=== PATIENT | female | born 1980 | race Caucasian/White ===

== ENCOUNTER 2019-10-12 09:19 | Day surgery (SDC) | payer OTHER, SELFPAY ==
[2019-10-11 08:18] VITALS: BMI 35.5
--- NOTE | 2019-10-12 09:45 | ANES.PREANE2 ---
Pre-Anesthetic Assessment Pre-Anesthetic Assessment: Height/Weight: Height 1.55 m Weight 85.275 kg Proposed Procedure: Operation Date: 10/12/19 10:30 Proposed Procedures p EGD 05026 K21.9(Not Applicable) - Balaji Farias MD Social: Social History: Alcohol (occ) and Tobacco Exam: Pre-Anes Outpt Exam: alert, oriented x 3, clear to auscultation bilaterally and regular rate & rhythm Airway: Submandibular: WNL Cervical ROM: WNL MP: 1 Dentition: Other (nose rings, teeth ok) History/ROS: No significant history except as noted Pulmonary: Pulmonary: None reported CV/HEM: CV/HEM: HTN : : None reported Hepatic: Hepatic: None reported GI: GI: GERD (controlled) Metabolic: Metabolic: None reported Musc/skel: Musc/skel: None reported Neuropsych: Neuropsych: None reported Anesthetic Plan: ASA status: 3 Anesthesia: Anesthesia Evaluation and MAC Risk of > 500 ml blood loss (7ml/kg in children): No PFSH Anesthesia PFSH: Medical History Benign essential HTN GERD (gastroesophageal reflux disease) Surgical History H/O bilateral breast reduction surgery H/O: hysterectomy Family History Other CAD (coronary artery disease) Cancer Hyperlipidemia Hypertension Stroke Denies family history of Anesthesia complication Bleeding disorder Social History Smoking and tobacco status: current every day smoker cigarettes Packs smoked per day: 0.5 Alcohol intake: current Alcohol intake frequency: holidays/special occasions only Lives independently: Yes Household members: spouse Marital status: Marrried Current occupational status: employed History of recent travel: No Data Anesthesia Cardiac Studies: No Data to Display
[2019-10-12 10:12] VITALS: BP 148/97; PULSE 51; RESP 18; TEMP 36.1; O2SAT 99
[2019-10-12] MEDS: sodium chloride 0.9% 1,000 ML 30 ML (10:12)
--- NOTE | 2019-10-12 11:08 | W.PM.OPSUD ---
Surgery/Procedure H&P Update DATE OF PROCEDURE: October 12, 2019 DATE H&P PERFORMED: 09/17/19 H&P UPDATE INFORMATION: H&P completed within last 30 days and No changes to prior documentation PLANNED PROCEDURE: Operation Date: 10/12/19 10:30 Proposed Procedures p EGD 10014 K21.9(Not Applicable) - Balaji Farias MD
[2019-10-12 11:28] VITALS: BP 110/89; PULSE 64; RESP 18; TEMP 36.2; O2SAT 98
--- NOTE | 2019-10-12 11:32 | ANE.PACU2 ---
 Inpatient post-anesthesia follow up: Airway intact: Yes Vital signs: Temperature 97.1 F Pulse Rate 64 Respiratory Rate 18 Blood Pressure 110/89 Pulse Oximetry 98 Oxygen Delivery Me thod Room Air Oxygen Flow Rate Fraction of Inspir ed Oxygen Hydration adequate: Yes Nausea and vomiting: No Pain level: 2 Mental status: Baseline
[2019-10-12 11:37] VITALS: BP 112/90; PULSE 52; RESP 16; O2SAT 97
== END 2019-10-12 11:46 | disposition home or self-care (01) ==
PROVIDERS: Family Provider Family Medicine; PCP Family Medicine; Visit Provider Surgery
PROC: 0DJ08ZZ Inspection of Upper Intestinal Tract, Via Natural or Artificial Opening Endoscopic (ICD-10-PCS; CPT 43235; principal; 2019-10-12 10:30)
DX: K21.9 Gastro-esophageal reflux disease without esophagitis (principal); K20.9 Esophagitis, unspecified; I10 Essential (primary) hypertension; Z82.49 Family history of ischemic heart disease and other diseases of the circulatory system; F17.210 Nicotine dependence, cigarettes, uncomplicated
CPT/HCPCS: 12345; 43239; 88305; J2704; J7030

== ENCOUNTER → 2020-02-12 11:14 | Outpatient (BNVA) | payer SELFPAY | PROVIDERS: Family Provider Family Medicine; PCP Family Medicine; Visit Provider Nurse Practitioner | DX: J06.9 Acute upper respiratory infection, unspecified (principal); F17.219 Nicotine dependence, cigarettes, with unspecified nicotine-induced disorders; R09.81 Nasal congestion | CPT/HCPCS: 87400 ==

== ENCOUNTER → 2020-08-28 11:22 | Outpatient (BNVA) | payer OTHER, SELFPAY | PROVIDERS: Family Provider Family Medicine; PCP Family Medicine; Visit Provider Nurse Practitioner Family | DX: Z20.828 Contact with and (suspected) exposure to other viral communicable diseases (principal) | CPT/HCPCS: 87635 ==

== ENCOUNTER → 2020-10-30 11:29 | Outpatient (BNVA) | payer SELFPAY | PROVIDERS: Family Provider Family Medicine; PCP Family Medicine; Visit Provider Family Medicine | DX: I10 Essential (primary) hypertension (principal); L65.9 Nonscarring hair loss, unspecified; R00.2 Palpitations; F17.219 Nicotine dependence, cigarettes, with unspecified nicotine-induced disorders; Z68.36 Body mass index [BMI] 36.0-36.9, adult | CPT/HCPCS: 80053; 80061; 81015; 82043; 84443; 85025 ==

== ENCOUNTER → 2020-11-13 13:55 | Outpatient (BNVA) | payer BC, SELFPAY | PROVIDERS: Family Provider Family Medicine; PCP Family Medicine; Visit Provider Obstetrics & Gynecology | DX: Z01.419 Encounter for gynecological examination (general) (routine) without abnormal findings (principal); R23.2 Flushing; N39.3 Stress incontinence (female) (male) | CPT/HCPCS: 83001; 84443 ==

== ENCOUNTER → 2020-11-15 13:49 | Outpatient (BNVA) | payer BC, SELFPAY | PROVIDERS: Family Provider Family Medicine; PCP Family Medicine; Visit Provider Obstetrics & Gynecology | DX: N83.291 Other ovarian cyst, right side (principal) | CPT/HCPCS: 76830 ==

== ENCOUNTER → 2020-11-27 14:44 | Outpatient (BNVA) | payer BC, SELFPAY | PROVIDERS: Family Provider Family Medicine; PCP Family Medicine; Visit Provider Obstetrics & Gynecology | DX: R23.2 Flushing (principal) | CPT/HCPCS: 84403 ==

== ENCOUNTER 2020-12-25 14:02 | Outpatient (CLI) | payer BC, SELFPAY ==
--- NOTE | 2020-12-25 14:00 | MM_ITS ---
WS: [id number] BILATERAL DIGITAL SCREENING MAMMOGRAPHY WITH CAD CLINICAL INFORMATION: Z12.39 - Encounter for other screening for malignant neoplasm of breast HISTORY: Screening mammogram. No current complaints. COMPARISON: None. TECHNIQUE: Bilateral CC and MLO views. FINDINGS: History of bilateral breast reduction. Scattered fibroglandular densities bilaterally. No suspicious focal mass, asymmetry, calcifications, or architectural distortion. No evidence of malignancy. Punctate and lucent centered calcifications. MM/[place] [id number] IMPRESSION: BI-RADS: 2-Benign FOLLOW UP: 1 Year Follow-up Recommend return to annual screening mammography.
== END 2020-12-25 14:03 | disposition home or self-care (01) ==
LOC: RADSHAW 14:06
PROVIDERS: PCP Family Medicine; Visit Provider Obstetrics & Gynecology
DX: Z12.31 Encounter for screening mammogram for malignant neoplasm of breast (principal)
CPT/HCPCS: 77067

== ENCOUNTER → 2021-03-16 12:06 | Outpatient (BNVA) | payer BC, SELFPAY | PROVIDERS: PCP Family Medicine; Visit Provider Urology | DX: N30.20 Other chronic cystitis without hematuria (principal); R31.21 Asymptomatic microscopic hematuria; N39.3 Stress incontinence (female) (male) | CPT/HCPCS: 81003; 87086; 88112 ==

== ENCOUNTER → 2021-04-10 11:50 | Outpatient (BNVA) | payer OTHER, BC, SELFPAY | PROVIDERS: PCP Family Medicine; Visit Provider Family Medicine Adult Medicine | DX: T78.40XA Allergy, unspecified, initial encounter (principal); Z91.018 Allergy to other foods; X58.XXXA Exposure to other specified factors, initial encounter; M25.50 Pain in unspecified joint; R23.2 Flushing | CPT/HCPCS: 82785; 86003 ==

== ENCOUNTER → 2021-05-07 11:56 | Outpatient (BNVA) | payer BC, SELFPAY | PROVIDERS: PCP Family Medicine; Visit Provider Family Medicine | DX: I10 Essential (primary) hypertension (principal) | CPT/HCPCS: 80053; 80061 ==

== ENCOUNTER → 2021-05-11 09:46 | Outpatient (BNVA) | payer BC, SELFPAY | PROVIDERS: PCP Family Medicine; Visit Provider Urology | DX: N30.20 Other chronic cystitis without hematuria (principal) | CPT/HCPCS: 81003; 88112 ==

== ENCOUNTER 2021-05-17 08:11 | Outpatient (CLI) | payer BC, SELFPAY ==
--- NOTE | 2021-05-17 08:00 | CT_ITS ---
WS: [id number] CT ABDOMEN PELVIS TECHNIQUE: Noncontrast CT of the abdomen and contrast-enhanced CT of the abdomen and pelvis with yadira nal and sagittal reformatted images. CLINICAL INFORMATION: MICROSCOPIC HEMATURIA COMPARISON: CT 7 30,019 DLP: 2908.[address] scans at [facility] use at least one of these dose optimization techniques: automated e xposure control; mA and/or kV adjustment per patient size (includes targeted exams where dose is matc hed to clinical indication); or iterative reconstruction. FINDINGS: Diffuse fatty infiltration of the liver. Normal portal vein and splenic vein. Lung bases are well aer ated. Small enhancing lobulated lesion in the gallbladder likely gallbladder polyps. This can be foll owed up with ultrasound. This measures approximately 13 mm. Normal spleen. Normal GE junction. Normal pancreas. Adrenal glands are normal. Normal caliber abdominal aorta. Renal parenchymal enhancement. No hydronephrosis. Normal opacification of the ureters. Normal excreti on on delayed images. Normal corticomedullary enhancement. Normal bladder filling on the delayed images. No visualized filling defects. No abdominal or pelvic lymphadenopathy. No inguinal lymphadenopathy. Normal sigmoid colon. Normal royer endix in the right lower quadrant. Right ovarian cyst measuring 2.[address]/CT abdomen pelvis wo/w [id number] IMPRESSION: 1. No hydronephrosis in either kidney. 2. Normal renal parenchymal enhancement. Normal filling of the ureters and roberto dder. No suspicious filling defects. 3. Diffuse fatty infiltration of the liver. 4. Small enhancing lesions in the gallbladder likely gallbladder polyps measur ing 14 mm. This can be followed up with ultrasound. 5. No abdominal or pelvic lymphadenopathy. 6. Right ovarian cyst measuring 2.1 x 1.9 CM. 7. No other significant findings.
[2021-05-17] MEDS: iohexol 300 mg/mL 100 mL Btl IV (08:53)
== END 2021-05-17 08:12 | disposition home or self-care (01) ==
LOC: RAD 08:14
PROVIDERS: PCP Family Medicine; Visit Provider Urology
DX: R31.29 Other microscopic hematuria (principal); N83.201 Unspecified ovarian cyst, right side; K76.0 Fatty (change of) liver, not elsewhere classified
CPT/HCPCS: 74178; 81003

== ENCOUNTER → 2021-06-01 09:47 | Outpatient (BNVA) | payer BC, SELFPAY | PROVIDERS: PCP Family Medicine; Visit Provider Obstetrics & Gynecology | DX: R10.2 Pelvic and perineal pain (principal); Z20.822 Contact with and (suspected) exposure to COVID-19 | CPT/HCPCS: 87635 ==

== ENCOUNTER 2021-06-06 07:51 | Day surgery (SDC) | payer BC, SELFPAY ==
[2021-06-05 10:24] VITALS: BMI 30.2
[2021-06-06 08:19] VITALS: BP 130/88; PULSE 52; RESP 16; TEMP 36.3; O2SAT 99
[2021-06-06 09:08] LABS: Basophils % 0.6 %; Eosinophils # 0.1 10^3/uL (0.0-0.8); Eosinophils % 1.2 %; Hematocrit 40.2 % (37.0-47.0); Hemoglobin 13.3 g/dL (11.5-15.3); Lymphocytes # 1.1 10^3/uL (0.8-4.8); Lymphocytes % 21.5 %; Mean Corpuscular HGB Conc 33.1 g/dL (30.0-36.0); Mean Corpuscular Hemoglobin 31.3 pg (28.0-34.0); Mean Corpuscular Volume 94.6 fl (81-99); Monocytes # 0.3 10^3/uL (0.2-0.9); Monocytes % 5.9 %; Neutrophils # 3.58 10^3/uL (1.8-7.7); Neutrophils % 70.6 %; Nucleated Red Blood Cells % 0 %; Platelet Count 226 10^3/cmm (130-400); Red Blood Count 4.25 10^6/uL (4.1-5.3); Red Cell Distribution Width 12.8 % (12.1-15.1); White Blood Count 5.1 10^3/uL (4.0-10.0)
--- NOTE | 2021-06-06 09:09 | ECG_ITS ---
[facility] Test Date: 2021-06-06 Pat Name: Hina Steele Department: Room: Gender: Female Geophysical Support Specialist: : 1980 Requested By: Jeana Lawrence Order Number: [id number] Brook MD: Macie Sal M.D. Measurements Intervals [place] Rate: 45 P: 37 [place]: 164 QRS: 18 QRSD: 83 T: 9 QT: 461 QTc: 399 Interpretive Statements SINUS BRADYCARDIA POSSIBLE RIGHT VENTRICULAR CONDUCTION DELAY [RSR (QR) IN V1/V2] Compared to ECG 10/31/2018 15:49:44 Incomplete right bundle-branch block no longer present T-wave abnormality no longer present Electronically Signed On 06-06-2021 20:06:42 CDT by Macie Sal M.D. [id number]
--- NOTE | 2021-06-06 09:09 | ANES.PREANE2 ---
Pre-Anesthetic Assessment Pre-Anesthetic Assessment: Height/Weight: Height 1.55 m Weight 70.307 kg Temp Pulse Resp BP Pulse Ox 97.3 F L 52 L 16 130/88 99 06/06/21 08:19 06/06/21 08:19 06/06/21 08:19 06/06/21 08:19 06/06/21 08:19 Preop Diagnosis: GERD Proposed Procedure: Operation Date: 06/06/21 09:15 Proposed Procedures p Laparoscopy diagnostic 98454 N93.9(Not Applicable) - Nagi Juares MD Familial anesthetic complications: Ponv Was Clonidine taken within 24 hours: N/A Last intake: > 8 hrs Social: Social History: No alcohol and No tobacco Exam: Pre-Anes Outpt Exam: alert, oriented x 3, clear to auscultation bilaterally and regular rate & rhythm Airway: Cervical ROM: WNL MP: 3 Dentition: Chipped (front) CV/HEM: CV/HEM: Arrythmia (bradycardia) and HTN Comments: took off amlodipine d/t passing out Anesthetic Plan: ASA status: 3 Risk of > 500 ml blood loss (7ml/kg in children): No Other Pertinent Information: alpha gal allergy PFSH Anesthesia PFSH: Medical History Allergic reaction Benign essential HTN Bipolar disorder Chronic cystitis GERD (gastroesophageal reflux disease) History of 2019 novel coronavirus disease (COVID-19) Multiple food allergies Urinary hesitancy Well woman exam with routine gynecological exam Surgical History H/O bilateral breast reduction surgery H/O LEEP H/O: hysterectomy Status post hysteroscopic polypectomy 10/21/2018- performed by Dr. Juares at [facility] [place] Family History Sister Thyroid condition Grandmother Heart disease maternal Hyperlipidemia maternal Hypertension maternal Stroke maternal Mother Hyperlipidemia Social History Smoking and tobacco status: former smoker Quit status (tobacco): has quit using tobacco Year quit tobacco: 01/2021 Alcohol intake: current Alcohol intake frequency: holidays/special occasions only Alcohol type: hard liquor Marital status: Marrried Current occupational status: employed History of recent travel: No Data Anesthesia CBC & Chem 7: 06/06/21 08:50 06/06/21 08:50 Other Labs: Laboratory Results - last 48 hr 06/06/21 08:50 WBC 5.1 RBC 4.25 Hgb 13.3 Hct 40.2 MCV 94.6 MCH 31.3 MCHC 33.1 RDW 12.8 Plt Count 226 MPV 10.0 Neut % (Auto) 70.6 Lymph % (Auto) 21.5 [place] % (Auto) 5.9 Eos % (Auto) 1.2 Baso % (Auto) 0.6 Neut # (Auto) 3.58 Lymph # (Auto) 1.1 [place] # (Auto) 0.3 Eos # (Auto) 0.1 Baso # (Auto) 0.0 Nucleated RBC % (auto) 0 Nucleated RBCs # 0.0 Cardiac Studies: No Data to Display
[2021-06-06 09:13] LABS: Add Urine Microscopic? YES; Bilirubin Urine Neg (Negative); Blood Urine Trace (Negative); Glucose Urine UA Norm (Normal); Ketones Urine Negative (Negative); Leukocyte Esterase Urine 2+ (Negative); Nitrate Urine Negative (Negative); Protein Urine Neg (Negative); Urine Appearance Clear (CLEAR); Urine Color Yellow (Yellow); Urobilinogen Urine Norm (Negative); pH Urine 6.5 (5-7)
[2021-06-06 09:21] LABS: Add Urine Culture? No; Bacteria Urine 1+ /hpf; RBC Urine 0-4 /hpf (0-2); Squamous Epithelial Cell Urine 25-40 /hpf (0-5)
--- NOTE | 2021-06-06 09:22 | W.PM.OPSUD ---
Surgery/Procedure H&P Update DATE OF PROCEDURE: June 06, 2021 DATE H&P PERFORMED: 09/17/19 H&P UPDATE INFORMATION: I have reviewed H&P completed within last 30 days, I have examined patient prior to procedure and Changes to prior documentation as noted here (5 rema on posterior right parietal area) PREOP DIAGNOSIS: GERD PLANNED PROCEDURE: Operation Date: 06/06/21 09:15 Proposed Procedures p Laparoscopy diagnostic 36605 N93.9(Not Applicable) - Nagi Juares MD
[2021-06-06] MEDS: scopolamine 1.5 Patch 1 PATCH TRANSDERMA (09:28)
[2021-06-06] MEDS: sodium chloride 0.9% 1,000 ML 30 ML IV (09:29)
[2021-06-06 09:32] LABS: Alanine Aminotransferase 19 U/L (0-33); Alkaline Phosphatase 83 IU/L (35-105); Anion Gap 13.5 (5-19); Aspartate Amino Transferase 18 U/L (0-32); Blood Urea Nitrogen 18 mg/dL (6-20); Calcium 8.9 mg/dL (8.5-10.5); Carbon Dioxide 26 mmol/L (22-29); Chloride 107 mmol/L (98-107); Creatinine Clr Calc Pharmacy 110.6471; Globulin 2.9 g/dL (1.3-4.6); Glomerular Filtration Rate 110.2 mL/min (90-130); Glucose 96 mg/dL (65-115); Osmolality Calculated 296 mOsm/kg (285-295); Potassium 4.5 mmol/L (3.5-5.1); Sodium 142 mmol/L (136-145); Total Bilirubin 0.3 mg/dL (0.15-1.2); Total Protein 6.9 g/dL (6.6-8.7)
[2021-06-06 12:22] VITALS: BP 162/98; PULSE 50; RESP 16; TEMP 36.8; O2SAT 100
[2021-06-06] MEDS: midazolam 1 mg/mL INJ 2 mL 2 MG IVP (12:24)
--- NOTE | 2021-06-06 14:39 | PC.NURSE ---
DOCTOR WHELAN TALKED TO PATIENT TO EXPLAIN DELAY AND POSSIBILITY OF RESCHEDULE. PATIENT LEFT AFTER GIVEN VERBAL FOLLOW UP INSTRUCTIONS BY DOCTOR WHELAN.
== END 2021-06-06 14:17 | disposition home or self-care (01) ==
LOC: OR 07:52
PROVIDERS: PCP Family Medicine; Visit Provider Obstetrics & Gynecology
PROC: (CPT 49320; principal; 2021-06-06 09:15)
DX: N93.9 Abnormal uterine and vaginal bleeding, unspecified (principal); Z53.9 Procedure and treatment not carried out, unspecified reason; I10 Essential (primary) hypertension; Z86.16 Personal history of COVID-19; Z87.891 Personal history of nicotine dependence
CPT/HCPCS: 36415; 80053; 81001; 85025; 86850; 86900; 93005; 96374; J2250; J7030

== ENCOUNTER → 2021-07-06 08:54 | Outpatient (BNVA) | payer BC, SELFPAY | PROVIDERS: PCP Family Medicine; Visit Provider Obstetrics & Gynecology | DX: Z20.822 Contact with and (suspected) exposure to COVID-19 (principal); N93.9 Abnormal uterine and vaginal bleeding, unspecified | CPT/HCPCS: 87635 ==

== ENCOUNTER 2021-07-11 08:29 | Day surgery (SDC) | payer BC, SELFPAY ==
[2021-07-09 09:02] VITALS: BMI 32.0
--- NOTE | 2021-07-09 14:31 | ANES.PREANE2 ---
Pre-Anesthetic Assessment Pre-Anesthetic Assessment: Height/Weight: Height 1.52 m Weight 74.389 kg Preop Diagnosis: GERD Proposed Procedure: Operation Date: 07/11/21 11:45 Proposed Procedures p Laparoscopy Diagnostic 56434 N93.9(Not Applicable) - Nagi Juares MD Was Beta Corinna taken within 24 hours: N/A Was Clonidine taken within 24 hours: N/A Social: Social History: Tobacco and No alcohol Exam: Pre-Anes Outpt Exam: alert, oriented x 3, clear to auscultation bilaterally and regular rate & rhythm Airway: Submandibular: WNL Cervical ROM: WNL MP: 2 Dentition: Chipped Additional comments: Jewelry on teeth CV/HEM: CV/HEM: HTN GI: GI: GERD Neuropsych: Neuropsych: Anxiety and Depression Anesthetic Plan: ASA status: 3 Anesthesia: General Other: H/O alpha gal Risk of > 500 ml blood loss (7ml/kg in children): No PFSH Anesthesia PFSH: Medical History Allergic reaction Benign essential HTN Bipolar disorder Chronic cystitis GERD (gastroesophageal reflux disease) History of 2019 novel coronavirus disease (COVID-19) Multiple food allergies Urinary hesitancy Well woman exam with routine gynecological exam Surgical History H/O bilateral breast reduction surgery H/O LEEP H/O: hysterectomy Status post hysteroscopic polypectomy [place]21[place]2018- [place] [facility] [place] History Sister Thyroid condition Grandmother Heart disease maternal Hyperlipidemia maternal Hypertension maternal Stroke maternal Mother Hyperlipidemia Social History (Updated 07/09/21 @ 09:58 by Farhana Kenney RN) Smoking and tobacco status: former smoker Alcohol intake: current Alcohol intake frequency: holidays/special occasions only Alcohol type: hard liquor Substance/Drug Use: current Substance/Drug use frequency: daily Substance/Drug use type: Marijuana Other substance/drug use details: has a marijuana card Data Anesthesia Cardiac Studies: No Data to Display
[2021-07-11 09:30] LABS: Charge for UA Resulting for Rev
[2021-07-11 09:35] VITALS: BP 140/95; PULSE 65; RESP 16; TEMP 36.3; O2SAT 99
[2021-07-11 10:14] LABS: Basophils % 0.6 %; Eosinophils # 0.1 10^3/uL (0.0-0.8); Eosinophils % 1.1 %; Hematocrit 44.7 % (37.0-47.0); Hemoglobin 14.6 g/dL (11.5-15.3); Lymphocytes # 1.5 10^3/uL (0.8-4.8); Lymphocytes % 27.7 %; Mean Corpuscular HGB Conc 32.7 g/dL (30.0-36.0); Mean Corpuscular Hemoglobin 30.8 pg (28.0-34.0); Mean Corpuscular Volume 94.3 fl (81-99); Mean Platelet Volume 9.5 fL (7.4-10.4); Monocytes # 0.3 10^3/uL (0.2-0.9); Monocytes % 6.1 %; Neutrophils # 3.35 10^3/uL (1.8-7.7); Neutrophils % 64.1 %; Nucleated Red Blood Cells % 0 %; Platelet Count 252 10^3/cmm (130-400); Red Blood Count 4.74 10^6/uL (4.1-5.3); Red Cell Distribution Width 12.2 % (12.1-15.1); White Blood Count 5.2 10^3/uL (4.0-10.0)
[2021-07-11] MEDS: scopolamine 1.5 Patch 1 PATCH TRANSDERMA (10:16)
[2021-07-11] MEDS: sodium chloride 0.9% 500 ML IV (10:17)
[2021-07-11 10:32] LABS: Anion Gap 15.2 (5-19); Blood Urea Nitrogen 13 mg/dL (6-20); Calcium 8.5 mg/dL (8.5-10.5); Carbon Dioxide 24 mmol/L (22-29); Chloride 104 mmol/L (98-107); Glomerular Filtration Rate 110.2 mL/min (90-130); Glucose 90 mg/dL (65-115); Osmolality Calculated 288 mOsm/kg (285-295); Potassium 4.2 mmol/L (3.5-5.1); Sodium 139 mmol/L (136-145)
--- NOTE | 2021-07-11 10:34 | W.PM.OPSUD ---
Surgery/Procedure H&P Update DATE OF PROCEDURE: July 11, 2021 DATE H&P PERFORMED: 07/09/21 H&P UPDATE INFORMATION: I have reviewed H&P completed within last 30 days, I have examined patient prior to procedure and No changes to prior documentation PREOP DIAGNOSIS: Pelvic pain PLANNED PROCEDURE: Operation Date: 07/11/21 10:20 Proposed Procedures p Laparoscopy Diagnostic 65206 N93.9(Not Applicable) - Nagi Juares MD
[2021-07-11] MEDS: sodium chloride 0.9% 1,000 ML 30 ML IV (10:50)
[2021-07-11] MEDS: diphenhydrAMINE 50 mg/mL SDV 1mL 25 MG IVP (10:51)
--- NOTE | 2021-07-11 11:02 | P.ANESUD_ITS ---
Pre-Anesthetic Update Pre-Anesthetic Assessment: Date of Surgery/Procedure: 07/11/21 Preop Ban gnosis: Pelvic pain Proposed Procedure: Operation Date: 07/11/21 10:20 Proposed Procedures p Laparoscopy Diagnostic 26073 N93.9(Not Applicable) - Nagi Juares MD Any changes to Pre-Anesthetic Assessment?: No Last Intake: Intake Last Liquid Date 07/11/21 Last Liquid Time 07:00 Last Solid Date 07/10/21 Last Solid Time 19:00 Labs Last 48hrs: Laboratory Results - last 48 hr 07/11/21 07/11/21 09:50 09:50 WBC 5.2 RBC 4.74 Hgb 14.6 Hct 44.7 MCV 94.3 MCH 30.8 MCHC 32.7 RDW 12.2 Plt Count 252 MPV 9.5 Neut % (Auto) 64.1 Lymph % (Auto) 27.7 [place] % (Auto) 6.1 Eos % (Auto) 1.1 Baso % (Auto) 0.6 Neut # (Auto) 3.35 Lymph # (Auto) 1.5 [place] # (Auto) 0.3 Eos # (Auto) 0.1 Baso # (Auto) 0.0 Nucleated RBC % (a uto) 0 Nucleated RBCs # 0.0 Sodium 139 Potassium 4.2 Chloride 104 Carbon Dioxide 24 Anion Gap 15.2 BUN 13 Creatinine 0.6 GFR Calculation 110.2 Glucose 90 Calculated Osmolal ity 288 Calcium 8.5 Vitals: Temperature 97.3 F L 07/11/21 09:35 Temperature Source Temporal Artery S can 07/11/21 09:35 Pulse Rate 65 07/11/21 09:35 Pulse Rhythm 07/11/21 09:39 Pulse Strength 3+ Normal 07/11/21 09:39 Respiratory Rate 16 07/11/21 09:35 Blood Pressure 140/95 07/11/21 09:35 Blood Pressure Mimi n 110 07/11/21 09:35 Pulse Oximetry 99 07/11/21 09:35 Oxygen Delivery Me thod 07/11/21 09:39 Exam: Pre-Anes Outpt Exam: alert, oriented x 3, clear to auscultation bilaterally and regular rate & rhythm Cardiac Studies: 2 No Data to Display
[2021-07-11 11:08] LABS: Blood Urine 2+ (Negative); Glucose Urine UA Norm (Normal); Ketones Urine Negative (Negative); Protein Urine Neg (Negative); Urine Appearance Hazy (CLEAR); Urine Color Straw (Yellow); pH Urine 7 (5-7)
[2021-07-11 11:09] LABS: Add Urine Microscopic? YES; Bilirubin Urine Neg (Negative); Leukocyte Esterase Urine 2+ (Negative); Nitrate Urine Negative (Negative); Urobilinogen Urine Norm (Negative)
[2021-07-11 11:10] LABS: Bacteria Urine 2+ /hpf; Mucus Urine 1+ /hpf
[2021-07-11 11:12] LABS: Add Urine Culture? Yes
--- NOTE | 2021-07-11 11:45 | P.OP_ITS ---
Operative Report Date of procedure: July 11, 2021 Pre-op Diagnosis: Pelvic pain Post-op diagnosis: same Post-op Findings: Pelvic adhesions Procedure Done: Diagnostic laparoscopy. Lysis of adhesions. Pathology: none sent Surgeon: Nagi Juares MD Anesthesia: General Estimated blood loss (mL): 3 IV fluids (mL): 700 Urine output (mL): 200 Complications: None Condition: stable Disposition: PACU Procedure: After informed consent, the patient was taken to the operating room w here general anesthesia was administered. The patient was examined under anesthesia and found to have a normal uterus with normal adnexa. She was placed in the dorsal lithotomy position and prepped and draped in sterile fashion. Pre- Procedure Time-Out verifying the correct patient identity, correct procedure verified with consent, correct site and side, correct patient position, availability of correct implants and any special equipment or requirements was performed and acknowledge by the OR team. A longo catheter was placed to maintain the bladder emptied. A sponge stick was place in the vagina since the patietn is S/P hysterectomy. An intraumbilical incision was made with a scalpel. While tenting up on the abdomen, a Verres needle with sleeve was admitted into the intra-abdominal cavit y. A saline drop test was performed and noted to be within normal limits. Pneumoperitoneum was attained with 4 liters of carbon dioxide. The Verres needle was removed. A 5 mm trocar and sleeve were admitted into the abdomen and laparoscopic confirmation of location was achieved, A second incision was made 3 cm above the symphysis pubis, and a 5 mm trocar and sleeve were admitted into the abdomen under direct, laparoscopic visualization without complication. A survey revealed normal abdominal anatomy but pelvic survey shows adhesions. Ovaries appeared normal. A 5 mm blunt probe was advanced through the second trocar sleeve, and light manipulation of ovaries and to assess the posterior aspects was performed. Omental adhesion to lower anterior abdominal wall were lysed with the Voyant device without complications and good hemostasis. Carbon dioxide was allowed to escape from the abdomen. The instruments were removed, and skin cover with a bandage. The instruments were removed from the vagina, and excellent hemostasis was noted. The patient tolerated the procedure well, and sponge, lap and needle count were correct times two. The patient taken to the recovery room in good condition.
[2021-07-11 12:02] VITALS: BP 132/82; PULSE 58; RESP 14; TEMP 36.3; O2SAT 100
[2021-07-11 12:10] VITALS: BP 117/66; PULSE 63; RESP 18; O2SAT 98
[2021-07-11 12:15] VITALS: BP 144/74; PULSE 58; RESP 10; TEMP 36.7; O2SAT 100
[2021-07-11 12:25] VITALS: BP 137/69; PULSE 58; RESP 18; TEMP 36.6; O2SAT 100
[2021-07-11 14:30] VITALS: BP 141/87; PULSE 69; RESP 16; TEMP 36.8; O2SAT 97
--- NOTE | 2021-07-11 14:52 | ANE.PACU2 ---
Inpatient post-anesthesia follow up: Airway intact: Yes Vital signs: Temperature 97.9 F Pulse Rate 58 Respiratory Rate 18 Blood Pressure 137/69 Pulse Oximetry 100 Oxygen Delivery Me thod Room Air Oxygen Flow Rate Fraction of Inspir ed Oxygen Hydration adequate: Yes Nausea and vomiting: No Pain level: 2 Mental status: Baseline
[2021-07-11] MEDS: HYDROcodone-acetaminophen 5-325 mg Tablet 1 TAB PO (15:15)
== END 2021-07-11 15:22 | disposition home or self-care (01) ==
PROVIDERS: PCP Family Medicine; Visit Provider Obstetrics & Gynecology
PROC: (CPT 49320; principal; 2021-07-11 10:15)
DX: R10.2 Pelvic and perineal pain (principal); I10 Essential (primary) hypertension; Z87.891 Personal history of nicotine dependence; Z90.710 Acquired absence of both cervix and uterus
CPT/HCPCS: 49320; 80048; 81001; 81003; 85025; 86850; 86900; 87086; 96374; J0690; J1100; J1200; J1885; J2250; J2310; J2405; J2704; J2710; J3010; J3490; J7030; J7040

== ENCOUNTER → 2021-11-08 14:20 | Outpatient (BNVA) | payer BC, SELFPAY | PROVIDERS: PCP Family Medicine; Visit Provider Family Medicine | DX: I10 Essential (primary) hypertension (principal) | CPT/HCPCS: 80053; 80061; 85025 ==

== ENCOUNTER → 2022-05-14 12:02 | Outpatient (BNVA) | payer OTHER, SELFPAY | PROVIDERS: PCP Family Medicine; Visit Provider Family Medicine | DX: E78.5 Hyperlipidemia, unspecified (principal) | CPT/HCPCS: 80053; 80061 ==

== ENCOUNTER → 2022-11-07 13:40 | Outpatient (BNVA) | payer OTHER, SELFPAY | PROVIDERS: PCP Family Medicine; Visit Provider Family Medicine | DX: Z01.89 Encounter for other specified special examinations (principal) | CPT/HCPCS: 85025 ==

== ENCOUNTER → 2022-11-08 15:08 | Outpatient (BNVA) | payer OTHER, SELFPAY | PROVIDERS: PCP Family Medicine; Visit Provider Family Medicine | DX: I10 Essential (primary) hypertension (principal) | CPT/HCPCS: 80053; 83036; 85025 ==

== ENCOUNTER 2022-12-11 10:33 | Outpatient (CLI) | payer OTHER, SELFPAY ==
--- NOTE | 2022-12-11 10:47 | MM_ITS ---
WS: [id number] BILATERAL SCREENING DIGITAL TOMOSYNTHESIS MAMMOGRAM WITH CAD HISTORY: screening mammogram, history of prior mammoplasty. COMPARISON: 12/25/2020 Bilateral CC and MLO views with tomosynthesis and synthetic mammography submitted. Computer aided det ection analyzed. Breast composition: There are scattered areas of fibroglandular density. No suspicious masses, microc alcifications or architectural distortion. Focal asymmetry and distortion in the upper-outer quadrant of the LEFT breast. This asymmetry was present on the prior study also. Favor this asymmetry is rela vira to the postsurgical changes of a mammoplasty. No interval change. MM/[place] [id number] IMPRESSION: BI-RADS: 2-Benign FOLLOW UP: 1 Year Follow-up
== END 2022-12-11 10:34 | disposition home or self-care (01) ==
LOC: RAD 10:36
PROVIDERS: PCP Family Medicine; Visit Provider Family Medicine
DX: Z12.31 Encounter for screening mammogram for malignant neoplasm of breast (principal)
CPT/HCPCS: 77063; 77067; 80053; 83036; 85025

== ENCOUNTER → 2023-11-21 13:55 | Outpatient (BNVA) | payer OTHER, SELFPAY | PROVIDERS: PCP Family Medicine; Visit Provider Emergency Medicine | DX: S89.91XA Unspecified injury of right lower leg, initial encounter (principal); S99.911A Unspecified injury of right ankle, initial encounter; X58.XXXA Exposure to other specified factors, initial encounter | CPT/HCPCS: 73562; 73610 ==

== ENCOUNTER → 2024-04-06 13:31 | Outpatient (BNVA) | payer OTHER, SELFPAY | DX: E78.00 Pure hypercholesterolemia, unspecified (principal); E66.9 Obesity, unspecified | CPT/HCPCS: 80053; 80061; 84439; 84443 ==

== ENCOUNTER 2024-04-16 10:58 | Outpatient (CLI) | payer BC, SELFPAY ==
--- NOTE | 2024-04-16 11:30 | MM_ITS ---
WS: [id number] SCREENING DIGITAL BREAST TOMOSYNTHESIS MAMMOGRAM WITH CAD HISTORY: screening COMPARISON: 12/25/2020, 12/11/2022 Bilateral CC and MLO with tomosynthesis and synthetic mammography submitted. Computer aided detection analyzed. Breast composition: The breasts are heterogeneously dense, which may obscure small masses. New asymme try RIGHT CC lateral breast posteriorly. This will probably improve with better compression. Addition al mild distortion in the upper outer quadrant of the LEFT breast needs to be further evaluated. No s oft tissue mass but there is an area of distortion near 11:00. MM/[place] [id number] IMPRESSION: BI-RADS: 0-Incomplete: Need additional imaging evaluation FOLLOW UP: Need Additional Imaging RIGHT breast: Spot compression views (CC, exaggerated lateral RIGHT cc). True M L. Ultrasound to follow if abnormality persists. LEFT breast: Spot compression views (CC and MLO). True ML. Ultrasound to follow if abnormality persists.
== END 2024-04-16 10:59 | disposition home or self-care (01) ==
LOC: RAD 10:58
DX: Z12.31 Encounter for screening mammogram for malignant neoplasm of breast (principal); R92.333 Mammographic heterogeneous density, bilateral breasts; N64.89 Other specified disorders of breast
CPT/HCPCS: 77063; 77067; 80053; 80061; 84439; 84443

== ENCOUNTER 2024-05-11 14:25 | Outpatient (CLI) | payer BC, SELFPAY ==
--- NOTE | 2024-05-11 14:30 | MM_ITS ---
WS: [id number] BILATERAL ADDITIONAL VIEWS DIGITAL TOMOSYNTHESIS MAMMOGRAPHY WITH CAD. LEFT breast ultrasound, limited HISTORY: Bilateral breast abnormalities. COMPARISON: 04/16/2024, 12/11/2022, 12/25/2020 Technique: LEFT CC and MLO spot compression and true ML. RIGHT ML, exaggerated CC and LEFT spot compr ession CC. Tomosynthesis performed. Breast composition: The breasts are heterogeneously dense, which may obscure small masses. The asymmetry resolves with additional imaging in the lateral aspect of the RIGHT breast. With additi onal spot compression views and exaggerated cc there is no persistent abnormality. LEFT breast: Slight architectural distortion persists but becomes less apparent in the upper outer qu adrant of the LEFT breast at a middle depth. This is probably near 3-4 o'clock. LEFT breast ultrasound, limited. The slight architectural distortion in the upper outer quadrant of the LEFT breast demonstrates no ab normality by ultrasound. There is no distortion or mass identified. MM/MM diag BI tomosynthesis [id number] IMPRESSION: BI-RADS: 3 - Probably Benign FOLLOW UP: 6 Month Follow-up The area of architectural distortion in the upper outer quadrant of the LEFT br east persists with additional imaging but there is no corresponding abnormality noted by ultrasound. I suspect this may be an area of scarring and postoperati ve changes from the mammoplasty. The confirmed continued stability diagnostic L EFT mammogram in 6 months and possible ultrasound is recommended.
== END 2024-05-11 14:26 | disposition home or self-care (01) ==
LOC: RAD 14:25
DX: R92.8 Other abnormal and inconclusive findings on diagnostic imaging of breast (principal); R92.333 Mammographic heterogeneous density, bilateral breasts
CPT/HCPCS: 76642; 77062; G0279

== ENCOUNTER 2025-03-29 09:24 | Outpatient (CLI) | payer OTHER, BC, SELFPAY ==
--- NOTE | 2025-03-29 09:30 | MM_ITS ---
WS: [id number] DIAGNOSTIC LEFT DIGITAL BREAST TOMOSYNTHESIS MAMMOGRAPHY WITH CAD LEFT breast ultrasound, limited HISTORY: abnormal mammogram, recommended 6 month follow-up COMPARISON: 05/11/2024, 04/16/2024 and 12/11/2022, ultrasound 05/11/2024 TECHNIQUE: Bilateral craniocaudad, mediolateral oblique, and mediolateral views are submitted with tomosynthesis and SM. Spot compression views LEFT CC and MLO. Computer aided detection utilized. Breast composition: The breasts are heterogeneously dense, which may obscure small masses. Architectural distortion persists in the upper outer quadrant. No mass identified. There are adjacent benign calcifications. LEFT breast ultrasound, limited. Ultrasound is directed to the upper outer quadrant. There is dense fibroglandular tissue but there is no shadowing or mass identified. No skin thickening. MM/MM diag tomosynthesis [id number] IMPRESSION: BI-RADS: 2 - Benign FOLLOW UP: 1 Year Follow-up 1. Recommend return to annual screening mammography. 2. The architectural distortion in the upper outer quadrant of the LEFT breast is thought to be related to the prior mammoplasty. There is no underlying mass identified.
--- NOTE | 2025-03-29 10:15 | US_ITS ---
WS: [id number] DIAGNOSTIC LEFT DIGITAL BREAST TOMOSYNTHESIS MAMMOGRAPHY WITH CAD LEFT breast ultrasound, limited HISTORY: abnormal mammogram, recommended 6 month follow-up COMPARISON: 05/11/2024, 04/16/2024 and 12/11/2022, ultrasound 05/11/2024 TECHNIQUE: Bilateral craniocaudad, mediolateral oblique, and mediolateral views are submitted with tomosynthesis and SM. Spot compression views LEFT CC and MLO. Computer aided detection utilized. Breast composition: The breasts are heterogeneously dense, which may obscure small masses. Architectural distortion persists in the upper outer quadrant. No mass identified. There are adjacent benign calcifications. LEFT breast ultrasound, limited. Ultrasound is directed to the upper outer quadrant. There is dense fibroglandular tissue but there is no shadowing or mass identified. No skin thickening. US/US breast LT complete [id number] IMPRESSION: BI-RADS: 2 - Benign FOLLOW UP: 1 Year Follow-up 1. Recommend return to annual screening mammography. 2. The architectural distortion in the upper outer quadrant of the LEFT breast is thought to be related to the prior mammoplasty. There is no underlying mass identified.
== END 2025-03-29 09:25 | disposition home or self-care (01) ==
LOC: RAD 09:25
DX: R92.8 Other abnormal and inconclusive findings on diagnostic imaging of breast (principal); R92.1 Mammographic calcification found on diagnostic imaging of breast; R92.332 Mammographic heterogeneous density, left breast
CPT/HCPCS: 76641; 77061; G0279